=== PATIENT | female | born 1940 | race Caucasian/White ===

== ENCOUNTER 2024-03-13 01:27 | Inpatient (IN) | payer MEDICARE ==
[~2024-03-13] VITALS: Ht 160 cm; Wt 68.1 kg
[~2024-03-13 01:27] MED LIST: DOXY25TA21 PO; FEBU80TA PO; FURO40TA4 PO; LEVO88TA4 PO; METO25TA36 PO; OLME40TA78 PO; OME40GT PO; PITA2TAB PO; PREMARIN PO; SODB650T PO; SPIR25TA8 PO; TRAM50TA2 PO
[2024-03-13 02:00] VITALS: PULSE 71; RESP 18; O2SAT 96
[2024-03-13] MEDS: LABETALOL HCL 5 MG/ML 4ML SYRINGE IV ONE (02:18)
[2024-03-13 02:22] LABS: Chloride 107 mmol/L (98-107); Sodium 137 mmol/L (136-145)
[2024-03-13 02:23] LABS: Anion Gap 8 (5-15); Calcium 11.1 mg/dL (8.7-10.4); Carbon Dioxide 22 mmol/L (20-30)
[2024-03-13 02:28] LABS: BUN/Creatinine Ratio 12.6 (10.0-20.0); Blood Urea Nitrogen 30 mg/dL (9-23); Glucose 117 mg/dL (74-106)
[2024-03-13 03:01] LABS: Basophils # (auto) 0.1 10 ^3/uL (0-0.2); Basophils % (auto) 1.1 % (0.0-2.0); Eosinophils # (auto) 0.5 10 ^3/uL (0-0.8); Eosinophils % (auto) 8.7 % (0.0-7.0); Hematocrit 33.1 % (36.0-46.0); Hemoglobin 10.8 g/dL (12.2-16.2); Lymphocytes # (auto) 0.9 10 ^3/uL (0.4-5.4); Lymphocytes % (auto) 15.8 % (10.0-50.0); Mean Corpuscular Hemoglobin 27.5 pg (28.0-32.0); Mean Corpuscular Hgb Conc. 32.6 g/dL (32.0-36.0); Mean Corpuscular Volume 84.3 fL (80.0-100.0); Monocytes # (auto) 0.4 10 ^3/uL (0-1.3); Monocytes % (auto) 7.7 % (0.0-12.0); Neutrophils # (auto) 3.7 10 ^3/uL (1.6-8.6); Neutrophils % (auto) 66.7 % (37.0-80.0); Red Blood Cells 3.93 10^6/uL (4.0-5.20); Red Cell Distribution Width 14.2 % (11.8-14.3); White Blood Cell 5.5 10^3/uL (4.4-10.8)
[2024-03-13] MEDS: NITROGLYCERIN 0.4MG/HR TOPICAL PATCH TD ONE (03:13)
[2024-03-13] MEDS: ASPirin 325 MG TAB PO ONE (03:13)
[2024-03-13] MEDS ORDERED: ONDANSETRON HCL 4 MG/2 ML VIAL IV PRN (03:45)
[2024-03-13] MEDS ORDERED: MORPHINE SULFATE INJ 2 MG/ml SYRG IV PRN (05:15)
[2024-03-13] MEDS ORDERED: NITROGLYCERIN 0.4 MG SL TAB SL PRN (05:15)
[2024-03-13] MEDS: SODIUM CHLOR 0.9% PF (SALINE LOCK) 10ML VIAL/SYR IV SCH (06:00)
[2024-03-13 06:32] LABS: Alanine Aminotransferase 22 U/L (7-40); Albumin 4.1 g/dL (3.2-4.8); Alkaline Phosphatase 92 U/L (46-116); Anion Gap 7 (5-15); Aspartate Aminotransferase 16 U/L (13-40); BUN/Creatinine Ratio 17.4 (10.0-20.0); Bilirubin, Total 0.3 mg/dL (0.2-1.0); Calcium 10.7 mg/dL (8.5-10.1); Carbon Dioxide 23 mmol/L (20-30); Chloride 109 mmol/L (98-107); Glucose 104 mg/dL (74-106); Sodium 139 mmol/L (136-145); Total Protein 5.9 g/dL (5.7-8.2)
[2024-03-13 06:36] LABS: Blood Urea Nitrogen 41 mg/dL (9-23)
[2024-03-13] MEDS: LEVOTHYROXINE SODIUM 88 MCG TAB PO SCH (06:42)
[2024-03-13 07:41] VITALS: PULSE 70; RESP 17; O2SAT 95
[2024-03-13 07:45] LABS: Basophils # (auto) 0 10 ^3/uL (0-0.2); Basophils % (auto) 0.9 % (0.0-2.0); Eosinophils # (auto) 0.4 10 ^3/uL (0-0.8); Eosinophils % (auto) 7.7 % (0.0-7.0); Hematocrit 30.7 % (36.0-46.0); Hemoglobin 10.2 g/dL (12.2-16.2); Lymphocytes # (auto) 1.1 10 ^3/uL (0.4-5.4); Lymphocytes % (auto) 20.3 % (10.0-50.0); Mean Corpuscular Hemoglobin 27.9 pg (28.0-32.0); Mean Corpuscular Hgb Conc. 33.1 g/dL (32.0-36.0); Mean Corpuscular Volume 84.2 fL (80.0-100.0); Monocytes # (auto) 0.4 10 ^3/uL (0-1.3); Monocytes % (auto) 7.5 % (0.0-12.0); Neutrophils # (auto) 3.5 10 ^3/uL (1.6-8.6); Neutrophils % (auto) 63.6 % (37.0-80.0); Nucleated Red Blood Cells % 0.1 %; Red Blood Cells 3.64 10^6/uL (4.0-5.20); Red Cell Distribution Width 14.2 % (11.8-14.3); White Blood Cell 5.6 10^3/uL (4.4-10.8)
[2024-03-13] MEDS ORDERED: CARVEDILOL 3.125 MG TAB PO SCH (10:00)
[2024-03-13] MEDS: CLOPIDOGREL BISULFATE 75 MG TAB PO SCH (10:35)
[2024-03-13] MEDS: CARVEDILOL 3.125 MG TAB PO SCH (10:36)
[2024-03-13] MEDS: ASPirin 81 mg TAB PO SCH (10:36)
[2024-03-13] MEDS: FAMOTIDINE (10MG/ML) 2ML VL IV SCH (10:37)
[2024-03-13] MEDS: FUROSEMIDE 40 MG/4 ML VIAL IV SCH (10:37)
[2024-03-13] MEDS: SODIUM CHLORIDE 0.9% 1,000 ML IV SCH (10:45)
[2024-03-13 11:52] LABS: INR 1.06 (0.9-1.15); Partial Thromboplastin Time 26.7 SEC (24.5-34.5); Prothrombin Time 11.2 sec (9.3-11.8)
[2024-03-13] MEDS: MAGNESIUM SULFATE 1GM/100ML 100 ML IV SCH (13:23)
[2024-03-13] MEDS: HEPARIN SODIUM (PORCINE) 5000 UNITS/ML 1ML VIAL IV ONE (13:24)
[2024-03-13] MEDS: HEPARIN DRIP/D5W 100UNITS/ML 250 ML IV SCH ×2 (13:31→21:30)
[2024-03-13] MEDS: ACETAMINOPHEN 325 MG TAB PO PRN (17:54)
[2024-03-13 20:22] VITALS: PULSE 85; RESP 18; O2SAT 96
[2024-03-13 20:23] LABS: INR 1.08 (0.9-1.15); Prothrombin Time 11.4 sec (9.3-11.8)
[2024-03-13 20:26] LABS: Partial Thromboplastin Time 97.5 SEC (24.5-34.5)
[2024-03-13] MEDS ORDERED: ATORVASTATIN 20 MG TAB PO SCH (22:00)
[2024-03-13] MEDS: ATORVASTATIN 20 MG TAB PO SCH (22:09)
[2024-03-14] VITALS (8 sets, daily range): BP systolic 132–167; BP diastolic 67–89; PULSE 60–119; RESP 17–22; TEMP 97.7–98.3; O2SAT 96–100
[2024-03-14] MEDS: hydrALAZINE HCL 20 MG/ML VL IV PRN (06:25)
[2024-03-14 07:06] LABS: Basophils # (auto) 0 10 ^3/uL (0-0.2); Basophils % (auto) 0.8 % (0.0-2.0); Eosinophils # (auto) 0.4 10 ^3/uL (0-0.8); Eosinophils % (auto) 7.4 % (0.0-7.0); Hematocrit 29.9 % (36.0-46.0); Hemoglobin 9.9 g/dL (12.2-16.2); Lymphocytes # (auto) 0.9 10 ^3/uL (0.4-5.4); Lymphocytes % (auto) 17.2 % (10.0-50.0); Mean Corpuscular Hemoglobin 28.1 pg (28.0-32.0); Mean Corpuscular Hgb Conc. 33.2 g/dL (32.0-36.0); Mean Corpuscular Volume 84.9 fL (80.0-100.0); Monocytes # (auto) 0.4 10 ^3/uL (0-1.3); Monocytes % (auto) 7.3 % (0.0-12.0); Neutrophils # (auto) 3.5 10 ^3/uL (1.6-8.6); Neutrophils % (auto) 67.3 % (37.0-80.0); Nucleated Red Blood Cells % 0.1 %; Red Blood Cells 3.52 10^6/uL (4.0-5.20); Red Cell Distribution Width 14.3 % (11.8-14.3); White Blood Cell 5.2 10^3/uL (4.4-10.8)
[2024-03-14 07:21] LABS: Alanine Aminotransferase 20 U/L (7-40); Albumin 3.9 g/dL (3.2-4.8); Alkaline Phosphatase 81 U/L (46-116); Anion Gap 8 (5-15); Aspartate Aminotransferase 19 U/L (13-40); BUN/Creatinine Ratio 16.1 (10.0-20.0); Blood Urea Nitrogen 36 mg/dL (9-23); Calcium 10.1 mg/dL (8.5-10.1); Carbon Dioxide 23 mmol/L (20-30); Chloride 109 mmol/L (98-107); Glucose 101 mg/dL (74-106); Potassium 3.7 mmol/L (3.5-5.1); Sodium 140 mmol/L (136-145)
[2024-03-14 07:22] LABS: Bilirubin, Total 0.2 mg/dL (0.2-1.0); Total Protein 5.6 g/dL (5.7-8.2)
[2024-03-14 07:59] LABS: INR 1.05 (0.9-1.15); Partial Thromboplastin Time 39.6 SEC (24.5-34.5); Prothrombin Time 11.1 sec (9.3-11.8)
[2024-03-14] MEDS: HYDROcodone-ACET 5/325MG TAB PO PRN (08:10)
[2024-03-14] MEDS: HEPARIN DRIP/D5W 100UNITS/ML 250 ML IV SCH (09:48)
[2024-03-14 19:18] LABS: INR 1.02 (0.9-1.15); Partial Thromboplastin Time 25.9 SEC (24.5-34.5); Prothrombin Time 10.8 sec (9.3-11.8)
[2024-03-15] VITALS (8 sets, daily range): BP systolic 117–154; BP diastolic 57–76; PULSE 58–88; RESP 16–18; TEMP 97.3–98.4; O2SAT 94–98
[2024-03-15 06:15] LABS: Basophils # (auto) 0 10 ^3/uL (0-0.2); Basophils % (auto) 0.6 % (0.0-2.0); Eosinophils # (auto) 0.3 10 ^3/uL (0-0.8); Hematocrit 32.3 % (36.0-46.0); Hemoglobin 10.9 g/dL (12.2-16.2); Lymphocytes # (auto) 0.8 10 ^3/uL (0.4-5.4); Lymphocytes % (auto) 11.8 % (10.0-50.0); Mean Corpuscular Hemoglobin 28.6 pg (28.0-32.0); Mean Corpuscular Hgb Conc. 33.8 g/dL (32.0-36.0); Mean Corpuscular Volume 84.4 fL (80.0-100.0); Monocytes # (auto) 0.4 10 ^3/uL (0-1.3); Neutrophils % (auto) 76.6 % (37.0-80.0); Red Blood Cells 3.83 10^6/uL (4.0-5.20); Red Cell Distribution Width 14.4 % (11.8-14.3); White Blood Cell 6.5 10^3/uL (4.4-10.8)
[2024-03-15 06:34] LABS: Alanine Aminotransferase 19 U/L (7-40); Albumin 4.2 g/dL (3.2-4.8); Alkaline Phosphatase 84 U/L (46-116); Anion Gap 6 (5-15); Aspartate Aminotransferase 18 U/L (13-40); BUN/Creatinine Ratio 12.9 (10.0-20.0); Blood Urea Nitrogen 27 mg/dL (9-23); Carbon Dioxide 25 mmol/L (20-30); Chloride 107 mmol/L (98-107); Glucose 104 mg/dL (74-106); Potassium 4.1 mmol/L (3.5-5.1); Sodium 138 mmol/L (136-145)
[2024-03-15 06:35] LABS: Bilirubin, Total 0.4 mg/dL (0.2-1.0); Total Protein 6.4 g/dL (5.7-8.2)
[2024-03-15] MEDS: cloNIDine HCL 0.1 MG TAB PO ONE (09:40)
[2024-03-15] MEDS ORDERED: cloNIDine HCL 0.1 MG TAB PO PRN (14:00)
[2024-03-15] MEDS: ALPRAZolam 0.5 MG TAB PO SCH (14:49)
[2024-03-15] MEDS: DOCUSATE SOD 100 MG CAP PO PRN (21:39)
[2024-03-16] VITALS (8 sets, daily range): BP systolic 113–154; BP diastolic 48–76; PULSE 63–69; RESP 12–18; TEMP 97.3–97.9; O2SAT 94–98
[2024-03-16] MEDS ORDERED: SENN-58 PO (13:54)
[2024-03-16] MEDS ORDERED: METO1TAB77 PO (13:54)
[2024-03-16] MEDS ORDERED: CLOP75TA70 PO (13:54)
[2024-03-16] MEDS ORDERED: LOSA-533 PO (13:54)
[2024-03-16] MEDS ORDERED: ASPI81CH59 PO (13:54)
[2024-03-16] MEDS ORDERED: NITR0.4S29 SL (13:54)
[2024-03-16] MEDS ORDERED: PANT40TA2 PO (13:54)
[2024-03-16] MEDS ORDERED: FERR1TAB8 PO (13:54)
[2024-03-16] MEDS ORDERED: IPRAAER6 INH (13:54)
[2024-03-16] MEDS ORDERED: ATOR-507 PO (13:54)
[2024-03-16] MEDS ORDERED: TEMA30CA PO (13:54)
[2024-03-16] MEDS ORDERED: AMLO1TAB22 PO (13:54)
[2024-03-16] MEDS ORDERED: CARV6.2551 PO (13:54)
[2024-03-16] MEDS ORDERED: ALLO100T PO (13:54)
[2024-03-16] MEDS ORDERED: EZET10TA22 PO (13:54)
[2024-03-16] MEDS ORDERED: ALBU108A5 INH (13:54)
[2024-03-16] MEDS ORDERED: SODI650T PO (13:56)
== END 2024-03-16 17:20 | disposition home health service (06) | DRG 280 ==
LOC: ER 01:27 → EDBD 01:27 → TELE 05:03 → TELE-CENTR 05:05
PROVIDERS: ADMIT Nurse Practitioner Family; ATTEND Family Medicine
DX: I25.10 Atherosclerotic heart disease of native coronary artery without angina pectoris (principal); I50.23 Acute on chronic systolic (congestive) heart failure; I21.A1 Myocardial infarction type 2; N17.0 Acute kidney failure with tubular necrosis; I13.0 Hypertensive heart and chronic kidney disease with heart failure and stage 1 through stage 4 chronic kidney disease, or unspecified chronic kidney disease; I16.0 Hypertensive urgency; N18.32 Chronic kidney disease, stage 3b; E03.9 Hypothyroidism, unspecified; E11.22 Type 2 diabetes mellitus with diabetic chronic kidney disease; K21.9 Gastro-esophageal reflux disease without esophagitis; E78.00 Pure hypercholesterolemia, unspecified; F41.9 Anxiety disorder, unspecified; Z66 Do not resuscitate; I25.2 Old myocardial infarction; Z95.5 Presence of coronary angioplasty implant and graft; Z79.84 Long term (current) use of oral hypoglycemic drugs
CPT/HCPCS: 36415; 71045; 80048; 80053; 82962; 83735; 83880; 84443; 84484; 85025; 85610; 85730; 87081; 93005; 93306; 96365; 96366; 96367; 96375; 99291; G0378; J3490